=== PATIENT | female | born 1950 | race Caucasian/White ===

== ENCOUNTER 2018-07-08 06:33 | Inpatient (IN) ==
[2018-07-02 17:13] LABS: Basophils # (Auto) 0.1 K/mcL (0.0-0.3); Basophils % (Auto) 0.8 % (0.0-2.0); Eosinophils # (Auto) 0.2 K/mcL (0.0-0.7); Eosinophils % (Auto) 2.7 % (0.0-7.0); Granulocytes % (Auto) 60.1 % (38.0-78.0); Lymphocytes # (Auto) 2.6 K/mcL (1.5-4.8); Lymphocytes % (Auto) 28.6 % (15.5-49.0); Mean Cell Volume 96.7 fL (80.0-100.0); Mean Corpuscular HGB Conc 32.4 g/dL (31.0-36.0); Monocytes # (Auto) 0.7 K/mcL (0.1-0.9); Monocytes % (Auto) 7.8 % (1.0-12.0); Platelet Count 262 K/mcL (140-440); RBC 4.27 M/mcL (4.00-5.20); Red Cell Distribution Width 14.2 % (11.5-14.5)
[2018-07-02 18:59] LABS: Blood Urea Nitrogen 26 mg/dl (8-23)
[2018-07-02 19:13] LABS: Appearance,Urine HAZY; Bacteria,Urine FEW /hpf (0); Bilirubin,Urine NEG (NEG); Color,Urine YELLOW; Glucose,Urine (UA) 50 mg/dL (NEG); Leukocyte Esterase,Urine 250 /uL (NEG); Mucus,Urine MANY /hpf (0); Protein,Urine 30 mg/dL (NEG); Specific Gravity,Urine 1.035 (1.000-1.035); Urine Blood NEG mg/dL (<0.03); Urine Hyaline Cast 9 /lpf (0-2); Urine RBC 4 /hpf (0-1); Urine Squamous Epithelial Cell 12 /hpf (0-4); Urine WBC 4 /hpf (0-4); Urobilinogen,Urine NEG (NEG)
[2018-07-02 21:34] LABS: Estimated Average Glucose(eAG) 114 mg/dL; Hemoglobin A1C 5.6 % HGB (4.0-6.0)
[~2018-07-08 06:33] MED LIST: CELECOXIB 200 MG CAPSULE PO SCH; PREGABALIN 75 MG CAPSULE PO SCH; ceFAZolin 2 GM in DEXTROSE 5% IN WATER 50 ML IV SCH; oxyCODONE 10 MG TAB.ER.12H PO SCH
[2018-07-08 08:54] LABS: Appearance,Urine CLEAR; Bilirubin,Urine NEG (NEG); Color,Urine YELLOW; Glucose,Urine (UA) NEGATIVE (NEG); Leukocyte Esterase,Urine NEG /uL (NEG); Protein,Urine NEG (NEG); Specific Gravity,Urine 1.021 (1.000-1.035); Urine Blood NEG mg/dL (<0.03); Urobilinogen,Urine NEG (NEG)
[2018-07-08] MEDS ORDERED: LIDOCAINE HCL/PF 100 MG/5 ML SYRINGE IV ONE (09:05)
[2018-07-08] MEDS ORDERED: fentaNYL 100 MCG/2 ML VIAL IV ONE (09:05)
[2018-07-08] MEDS ORDERED: MIDAZOLAM 5 MG/5 ML VIAL IV ONE (09:05)
[2018-07-08] MEDS ORDERED: ePHEDrine 50 MG/ML AMPUL IV ONE (09:05)
[2018-07-08] MEDS ORDERED: ONDANSETRON 4 MG/2 ML VIAL IV ONE (09:05)
[2018-07-08] MEDS ORDERED: SUCCINYLCHOLINE 20 MG/ML ML IV ONE (09:05)
[2018-07-08] MEDS ORDERED: PROPOFOL 200 MG/20 ML VIAL IV ONE (09:05)
[2018-07-08] MEDS ORDERED: DEXAMETHASONE 10 MG/ML VIAL IV ONE (09:05)
[2018-07-08] MEDS ORDERED: BUPIVACAINE W/EPI 0.5% 50 ML VIAL IJ ONE (09:48)
--- NOTE | 2018-07-08 10:44 | Brief Operative Note ---
Date of procedure: 07/08/18 Pre-op diagnosis: L shoulder osteoarthritis Post-op diagnosis: same Procedure: 1) Left total shoulder arthroplasty Grafts/Implants: Yes (Tornier aequalis std 5 stem, 46 hi 17 titanium head, L40 cortiloc glenoid) Anesthesia: GETA Findings: severe arthritis Complications: none Surgeon: Chris Puentes Tunnel Heading Inspector: Osmar Roth Estimated blood loss (cc): 150 Specimens Removed/Pathology: none sent Condition: stable Disposition: PACU
[2018-07-08] MEDS ORDERED: BISACODYL 10 MG SUPP.RECT PR PRN (10:47)
[2018-07-08] MEDS ORDERED: TRANEXAMIC ACID 1,000 MG/10 ML VIAL IV SCH (10:47)
[2018-07-08] MEDS ORDERED: MAGNESIUM HYDROXIDE 30 ML ORAL.SUSP PO PRN (10:47)
[2018-07-08] MEDS ORDERED: BENZOCAINE/MENTHOL 1 LOZENGE PO PRN (10:47)
[2018-07-08] MEDS ORDERED: POLYETHYLENE GLYCOL 3350 17 GM PACKET PO PRN (10:47)
[2018-07-08] MEDS ORDERED: FLEETS ADULT ENEMA PR PRN (10:47)
[2018-07-08] MEDS ORDERED: ONDANSETRON 4 MG/2 ML VIAL IV PRN ×2 (10:47→11:27)
[2018-07-08] MEDS ORDERED: KETOROLAC 15 MG/ML VIAL IV PRN ×2 (10:47→11:27)
[2018-07-08] MEDS ORDERED: ALBUTEROL SULFATE 1 PUFF INHALER INH PRN (10:50)
[2018-07-08] MEDS ORDERED: METHOCARBAMOL 1,000 MG/10 ML VIAL IV PRN (11:27)
[2018-07-08] MEDS ORDERED: FLUMAZENIL 0.1 MG/ML ML IV PRN (11:27)
[2018-07-08] MEDS ORDERED: PROMETHAZINE 25 MG/ML VIAL IV PRN (11:27)
[2018-07-08] MEDS ORDERED: HYDROmorphone 2 MG/ML VIAL IV PRN (11:27)
[2018-07-08] MEDS ORDERED: ATROPINE SULFATE 0.4 MG/ML VIAL IV PRN (11:27)
[2018-07-08] MEDS ORDERED: ACETAMINOPHEN 1,000 MG/100 ML BOTTLE IV ONE (11:27)
[2018-07-08] MEDS ORDERED: ePHEDrine 50 MG/ML AMPUL IV PRN (11:27)
[2018-07-08] MEDS ORDERED: IPRATROPIUM/ALBUTEROL 3 ML AMPUL.NEB NEB PRN (11:27)
[2018-07-08] MEDS ORDERED: diphenhydrAMINE 50 MG/ML VIAL IV PRN (11:27)
[2018-07-08] MEDS ORDERED: NALOXONE HCL 0.4 MG/ML VIAL IV PRN (11:27)
[2018-07-08] MEDS ORDERED: LACTATED RINGERS 1,000 ML IV SCH (11:30)
--- NOTE | 2018-07-08 11:32 | XRay Report ---
CLINICAL INFORMATION: Postsurgical follow-up TECHNIQUE: 2 view left shoulder COMPARISON: None. FINDINGS: Status post left shoulder arthroplasty. Alignment is anatomic. There are skin edmar present. There is mild soft tissue gas IMPRESSION: Status post left shoulder arthroplasty Interpreted and Authenticated by: Steven Simmons 07/08/18
[2018-07-08] MEDS: fentaNYL 100 MCG/2 ML VIAL IV PRN ×4 (11:35→11:43)
--- NOTE | 2018-07-08 11:50 | Operative Note ---
DATE OF OPERATION: 07/08/2018 PREOPERATIVE DIAGNOSIS: Left shoulder severe osteoarthritis. POSTOPERATIVE DIAGNOSIS: Left shoulder severe osteoarthritis. PROCEDURE PERFORMED: Left total shoulder arthroplasty using a Tornier Aequalis size 5 standard humeral stem; a 46/17 high eccentricity titanium head; a large 40 Cortiloc glenoid. SURGEON: Chris Puentes M.D. PERIODONTIST: Elmer Roth PA-C. ANESTHESIA: General. DRAINS: None. SPECIMENS: Humeral head which was discarded. BLOOD LOSS: 200 mL. COMPLICATIONS: None. POSTOPERATIVE CONDITION: Stable. INDICATIONS FOR SURGERY: This is a 68-year-old female who has had progressively worsening severe left shoulder pain. Radiographs showed severe [id number] osteoarthritis. FINDINGS AT SURGERY: She had severe arthritis with large osteophytes and multiple large loose bodies. Post implantation showed good component position and stability. PROCEDURE IN DETAIL: The patient had been seen preoperatively, and informed consent had been obtained after discussion of risks and benefits of surgery. Risks including, but not limited to, bleeding; infection, possibly requiring implant removal and prolonged IV antibiotics; injury to nerves, blood vessels, other surrounding structures; anesthetic risks; incomplete or no resolution of symptoms; stiffness; weakness; pain; dislocation; fracture; possibility of needing further revision surgery. She understood and wished to proceed. The correct operative site was marked and then patient was taken to the operating room. General anesthesia was induced. She was carefully positioned in the beachchair position and pressure points carefully padded. Left shoulder and upper extremity were carefully prepped and draped in normal sterile fashion, and a time-out was performed verifying patient name, operative site, and plan. All skin surfaces were covered with Ioban. A standard deltopectoral incision was made with scalpel through skin and subcutaneous tissue. Hemostasis was obtained with Bovie cautery. We continued with Bovie through a deep subcutaneous fat layer, and then once down on the muscle layer we identified the deltopectoral interval and the cephalic vein. The cephalic vein was dissected lateral with the deltoid and blunt dissection was taken down to the subdeltoid space. Blunt finger dissection was used to develop the subdeltoid space and then Adan deltoid retractor placed. The lateral edge of the conjoined tendon was identified and blue handle retractor placed underneath. The biceps groove was identified. We opened this and the biceps had already ruptured and scarred in, so we went ahead and just used a large curved osteotome to do a lesser tuberosity osteotomy. A traction stitch was placed and then we dislocated the humeral head out. Capsule was released around the inferior neck and large inferior humeral head osteophytes were removed with a curved osteotome. Once we had adequate resection of osteophytes, we made our neck cut using the guide from the Tornier set. We then started with the sounders, sounding up to a 5 size. We broached up to a size 5 and then calcar planed on this. We then placed a cut protector. We then subluxed the humerus posteriorly and exposed the glenoid. There were multiple large loose body osteophytes floating in the inferior pouch which we removed. We then removed what remained of labrum which was limited circumferentially. We carefully released capsule staying on bone inferiorly. Once we had exposure, we sized this to a size large 40 curvature. We then placed our central guide pin and reamed. Limited reaming was needed due to the sclerotic nature of the bone. We then drilled our central peg and then the peripheral peg drill guide was placed. We drilled our three peripheral pegs. We then trialed. It fit nicely, so we opened the large 40 implant. Next, 1 mL of DBX was used to fill the flute of the central peg and then cement was mixed. We irrigated the joint with Irrisept while cement was being mixed. After a minute we pulse lavaged with saline. We cemented the three peripheral holes, pressurizing with the gun and then the implant was impacted. We held everything absolutely still until cement had fully hardened. We then re-exposed the humerus. We sized the head to the 46/17 high offset with the offset placed superiorly, so we went ahead and removed this. We opened and assembled the definitive implants. We irrigated the humeral canal with Irrisept, after a minute pulse lavaged with saline. We then impacted the implant until it was fully seated. We then checked our posterior subluxation which was 50%. We then used a pin to make holes in the bicipital groove and then used a #2 FiberWire sqvvci-ap-qxzef through the holes and around the lesser tuberosity fragment to repair the subscapularis. We also placed several ftbqki-mt-ymdgjw in the rotator interval with a #2 FiberWire. We made a drill hole also for the traction stitch which we used to further our repair. We did another Irrisept irrigation, after a minute another pulse lavage, and then #1 Vicryl was used to run the deltopectoral interval. We did a final Irrisept irrigation, after a minute final pulse lavage, and then several deep fat stitches were done with Vicryl, and then 2-0 Monocryl for subcutaneous and edmar for skin. Xeroform and sterile dressing were applied. Arm was placed in an abductor immobilizer. The patient was awakened, extubated, and transferred to recovery in stable condition. BJB:coty Job ID: [id number] Doc ID: [id number] Chris Puentes MD
[2018-07-08] MEDS: 0.9 % SODIUM CHLORIDE 1,000 ML IV SCH ×2 (14:57→22:30)
[2018-07-08] MEDS: 0.9 % SODIUM CHLORIDE 10 ML SYRINGE IV SCH ×2 (14:57→20:37)
[2018-07-08] MEDS: HYDROcodone/APAP 10/325MG TABLET PO PRN (15:22)
[2018-07-08] MEDS: FAMOTIDINE 20 MG TABLET PO SCH ×2 (18:10→22:30)
[2018-07-08] MEDS: ceFAZolin 1 GM VIAL IV SCH (18:11)
[2018-07-08] MEDS: DOCUSATE SODIUM 100 MG CAPSULE PO SCH (20:38)
[2018-07-08] MEDS: OXYMETAZOLINE 1 SPRAY BOTTLE NAS SCH (20:39)
[2018-07-08] MEDS: METOPROLOL TARTRATE 25 MG TABLET PO SCH (20:41)
[2018-07-08] MEDS ORDERED: ATORVASTATIN 20 MG TABLET PO SCH (21:00)
[2018-07-08] MEDS ORDERED: SENNOSIDES 1 TABLET PO SCH (21:00)
[2018-07-09] MEDS: ceFAZolin 1 GM VIAL IV SCH (00:26)
[2018-07-09] MEDS: HYDROcodone/APAP 10/325MG TABLET PO PRN ×3 (03:06→12:17)
[2018-07-09] MEDS: 0.9 % SODIUM CHLORIDE 10 ML SYRINGE IV SCH ×2 (05:48→13:32)
[2018-07-09] MEDS ORDERED: PANTOPRAZOLE 40 MG TABLET PO SCH (07:30)
[2018-07-09] MEDS: 0.9 % SODIUM CHLORIDE 1,000 ML IV SCH (07:36)
--- NOTE | 2018-07-09 07:47 | Discharge Summary ---
Providers - Providers Patient information: Note initiated : 07/09/18 at 7:45 am Service Date, if different from initiated Date: [] Patient: Lori Dow 68 y/o F admitted on 07/08/18 for Left Total Shoulder Arthroplasty with Bicep Tendon. Chief Complaint: [] Discharge date: 07/09/18 Hospitalization Hospital course: Pt was admitted for a L total shoulder arthroplasty. Pt underwent the procedure on the day of admission. Pt spent one night on the flooor for IV pain meds, IV abx, and PT. Pt discharged to home. Pt will attend out-pt PT. Discharge diagnosis: L shoulder OA Exam - Exam Clean and dry: Yes Weight bearing status: none Ortho Discharge - TSA - Patient Instructions Diet: Regular Diet Activity: non weight bearing Total Shoulder Protocol: Leave immobilizer in place except for bathing and ROM. Abduction pillow. Continue to wear sling until seen by physician. Codman Pendulum : These exercises use momentum produced by your body to move your shoulder joint. Bend your knees and shift your weight to your front leg, then back, allowing your arm to swing in the same directions. Using the same technique, alternately shift your weight between your right and left legs, allowing your arm to swing from side to side. These exercises are also performed in counterclockwise and clockwise circular motions. Typically these exercises are performed several times per day, for a set number repetitions or minutes, such as 20 times in a row or 5 minutes at a time. Dressing Care: May shower in 2 days - Follow Up Plan Follow Up Appointments: Osmar Roth PA-C [Physician Directional Drill Operator] - 07/23/18 10:40 am () Disposition: Home, Self-Care Prognosis: Good Rehab Potential: Good Overall status at discharge: patient is progressing back to baseline - Orders For Discharge Prescriptions: traMADol [Ultram] 50 mg PO Q4-6HP PRN #75 tab PRN Reason: Pain Pending Studies Resuscitation Status Full Code Diet Regular Diet Start FriJul 08 104 Hydrocodone Bitart/Acetaminophen ([place] 10/325mg) 0 tab PO Q4HP PRN PRN Reason: PAIN LEVEL 3-6 Last Admin: 07/09/18 03:06 Dose: 1 tab Documented by: Admin: 07/08/18 15:22 Dose: 1 tab Documented by: SKYLER Atorvastatin Calcium (Lipitor) 20 mg PO [facility] Last Admin: 07/08/18 20:38 Dose: 20 mg Documented by: RASHEL Docusate Sodium (Colace) 100 mg PO BID COUNTS INCLUDE 234 BEDS AT THE [facility] Last Admin: 07/08/18 20:38 Dose: 100 mg Documented by: RASHEL Famotidine (Pepcid) 40 mg PO [facility] Last Admin: 07/08/18 22:30 Dose: Not Given Documented by: Admin: 07/08/18 18:10 Dose: 40 mg Documented by: SKYLER Sodium Chloride (Sodium Chloride 0.9%) 1,000 mls @ 100 mls/hr IV .Q10H COUNTS INCLUDE 234 BEDS AT THE [facility] Last Admin: 07/09/18 07:36 Dose: Not Given Documented by: Infusion: 07/09/18 01:00 Dose: 0 mls/hr Documented by: Admin: 07/08/18 22:30 Dose: Not Given Documented by: Admin: 07/08/18 14:57 Dose: 100 mls/hr Documented by: SKYLER Ketorolac Tromethamine (Toradol) 15 mg IV Q6HP PRN PRN Reason: Pain Stop: 07/10/18 10:49 Last Admin: 07/08/18 11:18 Dose: 15 mg Documented by: BRIANNA Metoprolol Tartrate (Lopressor) 12.5 mg PO BID COUNTS INCLUDE 234 BEDS AT THE [facility] Last Admin: 07/08/18 20:41 Dose: Not Given Documented by: RASHEL Morphine Sulfate (Morphine) 0 mg IV Q1HP PRN PRN Reason: PAIN LEVEL > 6 Last Admin: 07/08/18 15:02 Dose: 4 mg Documented by: Admin: 07/08/18 12:27 Dose: 4 mg Documented by: SKYLER Oxymetazoline HCl (Afrin) 1 spray MINE BID COUNTS INCLUDE 234 BEDS AT THE [facility] Last Admin: 07/08/18 20:39 Dose: 1 spray Documented by: RASHEL [facility] Last Admin: 07/09/18 07:33 Dose: 40 mg Documented by: BRIAN Polyethylene Glycol (Miralax) 17 gm PO DAILYP PRN PRN Reason: Constipation Last Admin: 07/08/18 21:08 Dose: 17 gm Documented by: RASHEL Senna (Senokot) 2 tab PO HS COUNTS INCLUDE 234 BEDS AT THE [facility] Last Admin: 07/08/18 20:38 Dose: 2 tab Documented by: RASHEL Sodium Chloride (Saline Flush) 10 ml IV Q8 COUNTS INCLUDE 234 BEDS AT THE [facility] Last Admin: 07/09/18 05:48 Dose: 10 ml Documented by: Admin: 07/08/18 20:37 Dose: 10 ml Documented by: Admin: 07/08/18 14:57 Dose: Not Given Documented by: SKYLER Shift Summary 07/09/18 03:41 Shift Summary by Donna Mota Patient slept off and on this shift. Alert and oriented. Medicated with Hydrocodone 1 tab for headache with good effect. IV on right hand saline locked. Patient eating and drinking fluids. Ambulated to the bathroom with SBA. Voiding adequately. Ambulated in hallway with SBA last night 380 ft. Left shoulder dressing CDI. Ice pack applied. VSS. Initialized on 07/09/18 03:41 - END OF NOTE
[2018-07-09] MEDS ORDERED: buPROPion 150 MG TAB.XL.24H PO SCH (09:00)
[2018-07-09] MEDS ORDERED: FLUoxetine HCL 20 MG CAPSULE PO SCH (09:00)
[2018-07-09] MEDS: OXYMETAZOLINE 1 SPRAY BOTTLE NAS SCH (09:26)
[2018-07-09] MEDS: DOCUSATE SODIUM 100 MG CAPSULE PO SCH (09:26)
[2018-07-09] MEDS: METOPROLOL TARTRATE 25 MG TABLET PO SCH ×2 (11:52→12:12)
[2018-07-09] MEDS: LISINOPRIL 10 MG TABLET PO SCH ×2 (11:52→12:12)
== END 2018-07-09 13:00 | disposition home or self-care (01) | DRG 483 ==
LOC: MEDSUR 06:33
PROVIDERS: ADMIT Orthopaedic Surgery; ATTEND Orthopaedic Surgery

== ENCOUNTER 2019-04-28 04:59 | Inpatient (IN) ==
[2019-04-16 19:18] LABS: Basophils # (Auto) 0.08 K/mcL (0.00-0.30); Basophils % (Auto) 0.8 % (0.0-2.0); Eosinophils # (Auto) 0.23 K/mcL (0.00-0.70); Eosinophils % (Auto) 2.2 % (0.0-7.0); Hemoglobin 13.3 g/dL (11.2-15.7); Lymphocytes # (Auto) 3.07 K/mcL (1.50-4.80); Lymphocytes % (Auto) 28.9 % (15.5-49.0); Mean Cell Volume 91.9 fL (80.0-100.0); Mean Corpuscular HGB Conc 30.9 g/dL (31.0-36.0); Mean Platelet Volume 10.3 fL (7.4-10.4); Monocytes # (Auto) 0.65 K/mcL (0.10-0.90); Monocytes % (Auto) 6.1 % (1.0-12.0); Platelet Count 283 K/mcL (140-440); RBC 4.68 M/mcL (3.59-5.38); Red Cell Distribution Width 18.7 % (11.5-14.5); WBC 10.6 K/mcL (4.50-11.00)
[2019-04-16 19:23] LABS: Appearance,Urine HAZY; Bilirubin,Urine NEG (NEG); Color,Urine YELLOW; Culture Indicated,Urine NO; Glucose,Urine (UA) NEGATIVE (NEG); Ketones,Urine NEG (NEG); Leukocyte Esterase,Urine NEG /uL (NEG); Nitrate,Urine NEG (NEG); Protein,Urine NEG (NEG); Specific Gravity,Urine 1.024 (1.000-1.035); Urine Blood NEG mg/dL (<0.03); Urobilinogen,Urine NEG (NEG)
[2019-04-16 19:28] LABS: Blood Urea Nitrogen 22 mg/dl (8-23); Calcium 9.3 mg/dl (8.6-10.4); Carbon Dioxide 25 mmol/L (22-30); Chloride 103 mmol/L (96-108); Glomerular Filtration Rate 75; Glucose 88 mg/dL (70-105)
[2019-04-16 19:41] LABS: Estimated Average Glucose(eAG) 117 mg/dL; Hemoglobin A1C 5.7 % HGB (4.0-6.0)
[2019-04-28] MEDS ORDERED: IPRATROPIUM/ALBUTEROL 3 ML AMPUL.NEB NEB PRN ×2 (05:00→08:32)
[2019-04-28] MEDS ORDERED: SCOPOLAMINE 1 PATCH PATCH TOPICAL PRN (05:00)
[2019-04-28] MEDS ORDERED: PREGABALIN 75 MG CAPSULE PO SCH (06:00)
[2019-04-28] MEDS ORDERED: ceFAZolin 2 GM in DEXTROSE 5% IN WATER 50 ML IV SCH (06:00)
[2019-04-28] MEDS ORDERED: oxyCODONE 10 MG TAB.ER.12H PO SCH (06:00)
[2019-04-28] MEDS ORDERED: CELECOXIB 200 MG CAPSULE PO SCH (06:00)
[2019-04-28] MEDS ORDERED: ePHEDrine 50 MG/ML AMPUL IV ONE (07:40)
[2019-04-28] MEDS ORDERED: ONDANSETRON 4 MG/2 ML VIAL IV ONE (07:40)
[2019-04-28] MEDS ORDERED: fentaNYL 250 MCG/5 ML VIAL IV ONE (07:40)
[2019-04-28] MEDS ORDERED: PHENYLEPHRINE 10 MG/ML VIAL IV ONE (07:40)
[2019-04-28] MEDS ORDERED: SUCCINYLCHOLINE 20 MG/ML ML IV ONE (07:40)
[2019-04-28] MEDS ORDERED: TRANEXAMIC ACID 1,000 MG/10 ML VIAL IV ONE (07:40)
[2019-04-28] MEDS ORDERED: KETAMINE 100 MG/ML ML IV ONE (07:40)
[2019-04-28] MEDS ORDERED: PROPOFOL 200 MG/20 ML VIAL IV ONE (07:40)
[2019-04-28] MEDS ORDERED: DEXAMETHASONE 10 MG/ML VIAL IV ONE (07:40)
[2019-04-28] MEDS ORDERED: LIDOCAINE HCL/PF 100 MG/5 ML SYRINGE IV ONE (07:40)
[2019-04-28] MEDS ORDERED: GLYCOPYRROLATE 0.2 MG/ML VIAL IV ONE (07:40)
[2019-04-28] MEDS ORDERED: ACETAMINOPHEN 1,000 MG/100 ML BOTTLE IV ONE (08:32)
[2019-04-28] MEDS ORDERED: ONDANSETRON 4 MG/2 ML VIAL IV PRN ×2 (08:32→09:24)
[2019-04-28] MEDS ORDERED: ATROPINE SULFATE 0.4 MG/ML VIAL IV PRN (08:32)
[2019-04-28] MEDS ORDERED: NALOXONE HCL 0.4 MG/ML VIAL IV PRN (08:32)
[2019-04-28] MEDS ORDERED: METOPROLOL TARTRATE 5 MG/5 ML VIAL IV PRN (08:32)
[2019-04-28] MEDS ORDERED: METHOCARBAMOL 1,000 MG/10 ML VIAL IV PRN (08:32)
[2019-04-28] MEDS ORDERED: HYDROmorphone 2 MG/ML VIAL IV PRN ×2 (08:32→09:24)
[2019-04-28] MEDS ORDERED: PROMETHAZINE 25 MG/ML VIAL IV PRN (08:32)
[2019-04-28] MEDS ORDERED: MEPERIDINE 25 MG/ML SYRINGE IV PRN (08:32)
[2019-04-28] MEDS ORDERED: diphenhydrAMINE 50 MG/ML VIAL IV PRN (08:32)
[2019-04-28] MEDS ORDERED: ePHEDrine 50 MG/ML AMPUL IV PRN (08:32)
[2019-04-28] MEDS ORDERED: LACTATED RINGERS 1,000 ML IV SCH (08:45)
[2019-04-28] MEDS ORDERED: BUPIVACAINE W/EPI 0.5% 50 ML VIAL IJ ONE (08:57)
[2019-04-28] MEDS ORDERED: FLEETS ADULT ENEMA PR PRN (09:24)
[2019-04-28] MEDS ORDERED: TRANEXAMIC ACID 1,000 MG/10 ML VIAL IV SCH (09:24)
[2019-04-28] MEDS ORDERED: BENZOCAINE/MENTHOL 1 LOZENGE PO PRN (09:24)
[2019-04-28] MEDS ORDERED: POLYETHYLENE GLYCOL 3350 17 GM PACKET PO PRN (09:24)
[2019-04-28] MEDS ORDERED: BISACODYL 10 MG SUPP.RECT PR PRN (09:24)
[2019-04-28] MEDS ORDERED: MAGNESIUM HYDROXIDE 30 ML ORAL.SUSP PO PRN (09:24)
--- NOTE | 2019-04-28 09:24 | Brief Operative Note ---
Date of procedure: 04/28/19 Pre-op diagnosis: Right shoulder severe OA Post-op diagnosis: same Procedure: Right total shoulder arthroplasty Grafts/Implants: Yes (Tornier 6 long stem, 46 hi x17 head, 50 L glenoid) Anesthesia: GETA Findings: severe OA Complications: none Surgeon: Chris Puentes Environmental Aid: Osmar Roth Estimated blood loss (cc): 150 Specimens Removed/Pathology: none sent Condition: stable Disposition: PACU
[2019-04-28] MEDS ORDERED: CLOTRIMAZOLE/BETAMETHASONE DIP 45 GM CREAM..G. TP PRN (09:29)
[2019-04-28] MEDS ORDERED: NYSTATIN POWDER BOTTLE 15GM TOPICAL PRN (09:29)
[2019-04-28] MEDS ORDERED: ALBUTEROL SULFATE 1 PUFF INHALER INH PRN (09:29)
[2019-04-28] MEDS: fentaNYL 100 MCG/2 ML VIAL IV PRN ×2 (10:09→10:22)
--- NOTE | 2019-04-28 10:25 | Operative Note ---
DATE OF OPERATION: 04/28/2019 PREOPERATIVE DIAGNOSIS: Right shoulder severe osteoarthritis [id number]. POSTOPERATIVE DIAGNOSIS: Right shoulder severe osteoarthritis [id number]. PROCEDURE PERFORMED: Right total shoulder arthroplasty placing a Tornier Aequalis Ascend Flex size 6 long humeral stem, a 46 x 17 mm high eccentricity titanium humeral head, and a large 50 Cortiloc glenoid. SURGEON: Chris Puentes M.D. LEAF FAT SCRAPER: Elmer Roth PA-C. The PA's assistance was required for the safe and efficient completion of the entire case. This provider's expertise and technical skill were required throughout the case. The PA assisted with preoperative coordination, intraoperative retraction, wound closure, dressing and splint application, as well as postoperative documentation and care coordination. ANESTHESIA: General. DRAINS: None. SPECIMENS: Humeral head which was discarded. BLOOD LOSS: 150 mL. COMPLICATIONS: None. POSTOPERATIVE CONDITION: Stable. INDICATIONS FOR SURGERY: This is a 69-year-old female who has had longstanding, progressive worsening, severe right shoulder pain. Radiographs showed severe niaa-[id number] osteoarthritis. She had a left total shoulder arthroplasty done by less than a year ago with excellent result. FINDINGS AT SURGERY: She had severe osteoarthritis. Post implantation showed satisfactory component position and stability. PROCEDURE IN DETAIL: The patient had been seen preoperatively. Informed consent had been obtained after discussion of risks and benefits of surgery. Risks including, but not limited to, bleeding; infection, possibly requiring implant removal and prolonged IV antibiotics; injury to nerves, blood vessels, and other surrounding structures; anesthetic risks; incomplete or no resolution of symptoms; dislocation; fracture; possibility of needing further revision surgery. She understood and wished to proceed. Correct operative site was marked and then patient was taken to the operating room. General anesthesia was induced. She was carefully positioned in the beach chair position and pressure points carefully padded. Right shoulder and upper extremity were then carefully prepped and draped in normal sterile fashion, and a timeout was performed verifying patient name, operative site, and plan. All skin surfaces were covered with Ioban and then a standard deltopectoral incision was made with a scalpel through skin and subcutaneous tissue. Hemostasis was obtained with Bovie cautery. We continued blunt dissection down onto the deltopectoral interval and the identification of the cephalic vein. We irrigated with Irrisept and then we carefully bluntly dissected medial to the vein down to the interval. Blunt finger dissection was used to develop the subdeltoid space and then Adan deltoid retractor placed. The lateral edge of the conjoined tendon was identified and blue handle retractor was placed underneath. We palpated the biceps tendon. This had apparently already torn and was scarred into the bicipital groove, so we went ahead and opened a rotator interval with the Bovie and then a curved osteotome used to perform a lesser tuberosity osteotomy. An Ethibond stitch was placed for a traction stitch around the subscap and lesser tuberosity fragment. We then dislocated the shoulder out anteriorly. Capsule was released around the inferior medial neck. A curved osteotome was used to remove osteophytes and then a cut guide was placed on the anatomic head. We pinned this into place and made our humeral head cut and then started with the initial canal finder awl and then sounders up to a 5.6. We then broached up to a size 6 stem. The cut protector was then placed on the stem trial. We then exposed the glenoid. Labrum was excised circumferentially and loose bodies were removed. I carefully released capsule around the inferior neck, keeping the Bovie directly on bone. Once we had adequate exposure, we then used the sizers to determine 50 curvature which the size large fit well. We used the 10 degree posterior angled pin guide to drill our central pin. We then started reaming. She had very sclerotic bone. Once we had smooth convex surface, we then drilled our central peg over the guidepin. The guidepin was removed and the peripheral guide placed and the three peripheral peg holes were drilled. We placed a trial to verify good fit and then a 50 large glenoid Cortiloc component was opened. DBX bone graft was placed in the central peg flute. Cement was mixed. We irrigated Irrisept on the glenoid. After waiting a minute, we pulse lavaged copiously with saline. We then injected cement into the three peripheral peg holes and compressed. We then impacted the glenoid component and held this absolutely still until cement had fully hardened. We then re-exposed the proximal humerus. The head trial was placed onto the stem trial. We checked our stability. There was 50% posterior subluxation. The eccentric head fit best with the #6 at 12 o'clock. The components were opened and assembled on the back table. We irrigated Irrisept down the humeral canal. After a minute, we pulse lavaged with saline. We then impacted the stem until it had fully seated. We then drilled some holes in the bicipital groove area and used #[address] a qfejsh-lv-azcoy stitch over the lesser tuberosity osteotomy. We cut this. We then took the traction stitches and took them from the bicipital groove and out lateral and then tied these over bone in a mattress stitch laterally and then a second nmqtfq-kc-bgckf was placed in the rotator interval with a #2 FiberWire. We did another Irrisept irrigation, after a minute more pulse lavage, and then #1 Vicryl running stitch was used to close the deltopectoral interval. We also used this to close some of the deep fat and then 2-0 Monocryl was used for subcutaneous and edmar for skin. Xeroform and sterile dressing applied. Arm was placed in a Donjoy adductor immobilizer and patient was awakened, extubated, and transferred to recovery in stable condition. SISSY:coty Job ID: [id number] Doc ID: [id number] Chris Puentes MD
--- NOTE | 2019-04-28 10:39 | XRay Report ---
CLINICAL INFORMATION: Post-OP Total Shoulder COMPARISON: None. FINDINGS: Right shoulder prostheses is anatomically aligned. No osseous abnormality. Soft tissues swelling seen as expected. IMPRESSION: Negative Interpreted and Authenticated by: Steven Mena 04/28/19
[2019-04-28] MEDS: KETOROLAC 15 MG/ML VIAL IV PRN ×2 (11:21→19:47)
[2019-04-28] MEDS: 0.9 % SODIUM CHLORIDE 1,000 ML IV SCH ×2 (11:21→22:08)
[2019-04-28] MEDS: oxyCODONE/APAP 5/325MG TABLET PO PRN ×3 (13:04→22:26)
[2019-04-28] MEDS: traMADol 50 MG TABLET PO SCH ×3 (13:06→22:17)
[2019-04-28] MEDS: 0.9 % SODIUM CHLORIDE 10 ML SYRINGE IV SCH ×2 (14:28→22:17)
[2019-04-28] MEDS: ceFAZolin 1 GM VIAL IV SCH (15:27)
[2019-04-28] MEDS ORDERED: CHLORPHENIRAMINE MALEATE 4 MG PO SCH (21:00)
[2019-04-28] MEDS ORDERED: SENNOSIDES 1 TABLET PO SCH (21:00)
[2019-04-28] MEDS ORDERED: ATORVASTATIN 20 MG TABLET PO SCH (21:00)
[2019-04-28] MEDS ORDERED: FAMOTIDINE 20 MG TABLET PO SCH (21:00)
[2019-04-28] MEDS: DOCUSATE SODIUM 100 MG CAPSULE PO SCH (22:08)
[2019-04-28] MEDS: METOPROLOL TARTRATE 25 MG TABLET PO SCH (22:09)
[2019-04-29] MEDS: ceFAZolin 1 GM VIAL IV SCH (00:15)
[2019-04-29] MEDS: oxyCODONE/APAP 5/325MG TABLET PO PRN ×3 (04:44→10:03)
[2019-04-29] MEDS: 0.9 % SODIUM CHLORIDE 10 ML SYRINGE IV SCH (07:02)
[2019-04-29] MEDS: 0.9 % SODIUM CHLORIDE 1,000 ML IV SCH (07:02)
[2019-04-29] MEDS ORDERED: OMEPRAZOLE 20 MG CAPSULE PO SCH (07:30)
--- NOTE | 2019-04-29 07:48 | Discharge Summary ---
Providers - Providers Patient information: Note initiated : 04/29/19 at 7:45 am Service Date, if different from initiated Date: [] Patient: Lori Dow 69 y/o F admitted on 04/28/19 for Right Total Shoulder Arthroplasty. Chief Complaint: [] Discharge date: 04/29/19 Hospitalization Hospital Course: Pt was admitted for a R TSA. Underwent procedure on the day of admission. Pt discharged post-op day 1. f/u in 2 weeks. Discharge diagnosis: R shoulder OA Exam - Exam Clean and dry: Yes Weight bearing status: none Ortho Discharge - TSA - Patient Instructions Diet: Regular Diet Activity: non weight bearing Total Shoulder Protocol: Leave immobilizer in place except for bathing and ROM. Abduction pillow. Continue to wear sling until seen by physician. Codman Pendulum : These exercises use momentum produced by your body to move your shoulder joint. Bend your knees and shift your weight to your front leg, then back, allowing your arm to swing in the same directions. Using the same technique, alternately shift your weight between your right and left legs, allowing your arm to swing from side to side. These exercises are also performed in counterclockwise and clockwise circular motions. Typically these exercises are performed several times per day, for a set number repetitions or minutes, such as 20 times in a row or 5 minutes at a time. Dressing Care: May shower in 2 days - Follow Up Plan Disposition: Home, Self-Care Prognosis: Good Rehab Potential: Good Overall status at discharge: patient is progressing back to baseline - Orders For Discharge Prescriptions: Hydrocodone/APAP 7.5/325Mg [[place] 7.5-325Mg] 1 - 2 tab PO Q6HP PRN #70 tab PRN Reason: Pain Prescription Printed Pending Studies Resuscitation Status Full Code Diet Consistent Carbohydrate Diet Start FriApr 28 926 Atorvastatin Calcium (Lipitor) 20 mg PO HS [facility] Last Admin: 04/28/19 22:13 Dose: 20 mg Documented by: MICHAEL Docusate Sodium (Colace) 100 mg PO BID [facility] Last Admin: 04/28/19 22:08 Dose: 100 mg Documented by: MICHAEL Famotidine (Pepcid) 40 mg PO HS [facility] Last Admin: 04/28/19 22:08 Dose: 40 mg Documented by: MICHAEL Sodium Chloride (Sodium Chloride 0.9%) 1,000 mls @ 100 mls/hr IV .Q10H [facility] Last Admin: 04/29/19 07:02 Dose: Not Given Documented by: Admin: 04/28/19 22:08 Dose: Not Given Documented by: Infusion: 04/28/19 22:08 Dose: 0 mls/hr Documented by: Admin: 04/28/19 11:21 Dose: 100 mls/hr Documented by: DARRYL Ketorolac Tromethamine (Toradol) 15 mg IV Q6HP PRN; Protocol PRN Reason: Per Pain Protocol Stop: 04/30/19 09:28 Last Admin: 04/28/19 19:47 Dose: 15 mg Documented by: Admin: 04/28/19 11:21 Dose: 15 mg Documented by: DARRYL Metoprolol Tartrate (Lopressor) 12.5 mg PO BID [facility] Last Admin: 04/28/19 22:09 Dose: 12.5 mg Documented by: MICHAEL Omeprazole (Prilosec) 20 mg PO ACB [facility] Last Admin: 04/29/19 07:02 Dose: 20 mg Documented by: DARRYL Oxycodone/Acetaminophen (Percocet 5-325 Mg) 0 tab PO Q4HP PRN; Protocol PRN Reason: Per Pain Protocol Last Admin: 04/29/19 04:44 Dose: 1 tab Documented by: Admin: 04/28/19 22:26 Dose: 1 tab Documented by: Admin: 04/28/19 17:36 Dose: 1 tab Documented by: Admin: 04/28/19 13:04 Dose: 1 tab Documented by: DARRYL Chlorpheniramine Maleate [Chlor- [place]] 4 Mg Tablet 1 dose PO [facility] Last Admin: 04/28/19 22:14 Dose: 1 dose Documented by: MICHAEL Senna (Senokot) 2 tab PO [facility] Last Admin: 04/28/19 22:08 Dose: 2 tab Documented by: MICHAEL Sodium Chloride (Saline Flush) 10 ml IV Q8 [facility] Last Admin: 04/29/19 07:02 Dose: 10 ml Documented by: Admin: 04/28/19 22:17 Dose: 10 ml Documented by: Admin: 04/28/19 14:28 Dose: Not Given Documented by: DARRYL Tramadol HCl (Ultram) 50 mg PO QID [facility] Last Admin: 04/28/19 22:17 Dose: Not Given Documented by: Admin: 04/28/19 17:37 Dose: Not Given Documented by: Admin: 04/28/19 13:06 Dose: Not Given Documented by: DARRYL Shift Summary 04/29/19 05:12 Shift Summary by Kanika Rosen Pt slept most of the night. Has been up to BR w/SBA, voiding well. CMS checks to right shoulder/arm WNL. Immobilizer in place. Pt has no pain until she gets out of bed, then her arm shifts & the front of her shoulder pulls & hurts. Has had pain meds twice. Initialized on 04/29/19 05:12 - END OF NOTE
[2019-04-29] MEDS: METOPROLOL TARTRATE 25 MG TABLET PO SCH (08:28)
[2019-04-29] MEDS: DOCUSATE SODIUM 100 MG CAPSULE PO SCH (08:29)
[2019-04-29] MEDS: traMADol 50 MG TABLET PO SCH (08:30)
[2019-04-29] MEDS ORDERED: CYANOCOBALAMIN (VITAMIN B-12) 500 MCG TABLET PO SCH (09:00)
[2019-04-29] MEDS ORDERED: buPROPion 150 MG TAB.SR.12H PO SCH (09:00)
[2019-04-29] MEDS ORDERED: CETIRIZINE 10 MG TABLET PO SCH (09:00)
[2019-04-29] MEDS ORDERED: FLUoxetine HCL 20 MG CAPSULE PO SCH (09:00)
[2019-04-29] MEDS ORDERED: ASCORBIC ACID 500 MG TABLET PO SCH (09:00)
== END 2019-04-29 12:25 | disposition home or self-care (01) | DRG 483 ==
LOC: MEDSUR 04:59
PROVIDERS: ADMIT Orthopaedic Surgery; ATTEND Orthopaedic Surgery